=== PATIENT | female | born 1985 | race Caucasian/White ===

== ENCOUNTER 2017-05-05 11:09 | Inpatient (IN) | payer OTHER ==
[~2017-05-05] VITALS: Ht 162.6 cm; Wt 63.6 kg
[~2017-05-05 11:09] MED LIST: ANALPRAM HC 2.5%4 G1 PR; ANAPROX DS550 M1 PO; CHLORASEPTIC M1 EACH MM; IBUPROFEN800 MG PO; Levaquin PO; Motrin PO; NORCO 5/3251 TABLET PO; PREFERA-OB P1 TABLET PO; Percocet 5/325,Endoc PO; SENOKOT S,PE1 TABLET PO
[2017-05-05 12:19] LABS: ADD MIUA? YES; BILIRUBIN NEGATIVE; BLOOD NEGATIVE; COLOR YELLOW ((YELLOW)); GLUCOSE (STRIP) NEGATIVE; KETONES NEGATIVE; LEUKOCYTES MODERATE; NITRITE NEGATIVE; PROTEIN (STRIP) 30; SPECIFIC GRAVITY 1.024 (1.000-1.030); UROBILINOGEN 0.2 MG/DL (0.2-1.0)
[2017-05-05 12:42] LABS: EPITHELIAL CELLS 4+ /HPF; RED BLOOD CELLS NONE SEEN /HPF (0-5)
[2017-05-05 12:43] LABS: BACTERIA 2+ /HPF; CASTS NONE SEEN /LPF; CRYSTALS NONE SEEN; MUCUS 2+ /LPF; UCUL ADDED? YES
[2017-05-05 13:22] LABS: HEMATOCRIT 40.6 % (36.0-46.0); MCH 28.4 PG (29.0-34.0); MCHC 32.3 G/DL (30.0-36.0); MCV 88.1 FL (83-99); MEAN PLAT.VOLUME 10.1 uM^3 (9.5-12.4); PLATELET COUNT 198 K/uL (156-360); RBC DIS.WIDTH-CV 13.8 % (11.8-14.6); RBC DIS.WIDTH-SD 44.6 % (39-53); RED BLOOD COUNT 4.61 M/uL (3.80-5.20); WHITE BLOOD COUNT 12.1 K/uL (4.1-10.2)
[2017-05-05 13:28] LABS: CHLORIDE 106 mEq/L (99-109); SODIUM 136 mEq/L (136-147)
[2017-05-05 13:30] LABS: GLUCOSE 86 mg/dL (70-99)
[2017-05-05 13:31] LABS: ANION GAP 7 MEQ/L (2-14)
[2017-05-05 13:34] LABS: GFR ESTIMATE (CALCULATED) > 59 mL/min/
[2017-05-05 13:35] LABS: UREA NITROGEN (BUN) 10 mg/dL (9-23)
[2017-05-05 13:43] LABS: QUANTITATIVE HCG < 4.0 MIU/ML
[2017-05-05] MEDS ORDERED: ZOLOFT100 MG PO (16:31)
[2017-05-05] MEDS ORDERED: MONONESSA1 EACH PO (16:32)
[2017-05-05 18:01] VITALS: BP 102/57
[2017-05-05 19:27] VITALS: BP 107/56
[2017-05-06] VITALS (8 sets, daily range): BP systolic 103–120; BP diastolic 54–78
[2017-05-06 07:06] LABS: HEMATOCRIT 34.6 % (36.0-46.0); MCH 29.5 PG (29.0-34.0); MCHC 32.4 G/DL (30.0-36.0); MCV 91.1 FL (83-99); PLATELET COUNT 171 K/uL (156-360); RBC DIS.WIDTH-CV 14.3 % (11.8-14.6); RBC DIS.WIDTH-SD 47.8 % (39-53); WHITE BLOOD COUNT 12.2 K/uL (4.1-10.2)
[2017-05-06 07:34] LABS: ANION GAP 5 MEQ/L (2-14); CHLORIDE 109 MEQ/L (99-109); GFR ESTIMATE (CALCULATED) > 59 mL/min/; GLUCOSE 96 mg/dL (70-99); POTASSIUM 4.1 MEQ/L (3.7-5.4); SAMPLE HEMOLYSIS CHECK 0; SAMPLE ICTERIC CHECK 0; SAMPLE LIPEMIA CHECK 0; SODIUM 138 MEQ/L (136-147); UREA NITROGEN (BUN) 10 mg/dL (9-23)
[2017-05-07 03:03] VITALS: BP 113/71
[2017-05-07 06:35] LABS: EOSINOPHIL (%) 1.8 % (0-5); EOSINOPHIL COUNT 0.2 K/uL (0-0.3); HEMATOCRIT 35.3 % (36.0-46.0); IMMATURE GRANULOCYTE (%) 0.3 % (0.0-0.7); INSTRUMENT ABS NEUTROPHIL CT 4.8 K/uL; LYMPHOCYTE COUNT 2.3 K/uL (1.0-2.8); MCH 29.2 PG (29.0-34.0); MCHC 32.6 G/DL (30.0-36.0); MCV 89.6 FL (83-99); MEAN PLAT.VOLUME 10.7 uM^3 (9.5-12.4); MONOCYTE (%) 16.2 % (3-12); MONOCYTE COUNT 1.4 K/uL (0-0.8); NEUTROPHIL (%) 55.3 % (45-76); NEUTROPHIL COUNT 4.8 K/uL (1.8-6.4); PLATELET COUNT 189 K/uL (156-360); RBC DIS.WIDTH-CV 14.2 % (11.8-14.6); RBC DIS.WIDTH-SD 46.4 % (39-53); RED BLOOD COUNT 3.94 M/uL (3.80-5.20); WHITE BLOOD COUNT 8.7 K/uL (4.1-10.2)
[2017-05-07 08:08] VITALS: BP 114/74
[2017-05-07] MEDS ORDERED: IBUPROFEN400 MG PO (11:53)
[2017-05-07] MEDS ORDERED: KEFLEX500 MG PO (11:54)
== END 2017-05-07 13:25 | disposition home or self-care (01) | DRG 690 ==
LOC: EME 11:09 → EDOF 16:00 → 5EAST 16:00
PROVIDERS: Hospitalist
DX: N10 Acute pyelonephritis (principal); F41.9 Anxiety disorder, unspecified; N20.0 Calculus of kidney; N29 Other disorders of kidney and ureter in diseases classified elsewhere; Z72.0 Tobacco use; Z79.899 Other long term (current) drug therapy
CPT/HCPCS: 71010; 74176; 80048; 81003; 83605; 84702; 85025; 85027; 87040; 87086; 99281; 99285; J0696; J1644; J2270; J7030; J7050

== ENCOUNTER 2018-02-12 23:53 | Emergency (ER) | payer OTHER ==
[~2018-02-12] VITALS: Ht 162.6 cm; Wt 72.8 kg
[~2018-02-12 23:53] MED LIST changes: +IBUPROFEN400 MG PO; +KEFLEX500 MG PO; +MONONESSA1 EACH PO; +ZOLOFT100 MG PO
[2018-02-13 00:10] LABS: APPEARANCE SL.HAZY ((CLEAR)); BILIRUBIN NEGATIVE; BLOOD MODERATE; COLOR YELLOW ((YELLOW)); GLUCOSE (STRIP) NEGATIVE; KETONES NEGATIVE; LEUKOCYTES MODERATE; NITRITE NEGATIVE; PROTEIN (STRIP) 30; SPECIFIC GRAVITY 1.019 (1.000-1.030); UROBILINOGEN 0.2 MG/DL (0.2-1.0)
[2018-02-13 00:15] LABS: BACTERIA RARE /HPF; EPITHELIAL CELLS 2+ /HPF; MUCUS TRACE /LPF; RED BLOOD CELLS 15-20 /HPF (0-5); UCUL ADDED? YES; WHITE BLOOD CELLS 15-20 /HPF (0-5)
[2018-02-13 01:32] LABS: HEMATOCRIT 37.8 % (36.0-46.0); HEMOGLOBIN 12.8 G/DL (11.9-15.5); MCH 30.7 PG (29.0-34.0); MCHC 33.9 G/DL (30.0-36.0); MCV 90.6 FL (83-99); PLATELET COUNT 185 K/uL (156-360); RBC DIS.WIDTH-CV 14.1 % (11.8-14.6); RED BLOOD COUNT 4.17 M/uL (3.80-5.20)
[2018-02-13 01:42] LABS: CHLORIDE 105 mEq/L (99-109); SODIUM 139 mEq/L (136-147)
[2018-02-13 01:44] LABS: GLUCOSE 103 mg/dL (70-99)
[2018-02-13 01:48] LABS: CREATININE 0.7 mg/dL (0.6-1.3); GFR ESTIMATE (CALCULATED) > 59 mL/min/
[2018-02-13 01:49] LABS: UREA NITROGEN (BUN) 16 mg/dL (9-23)
[2018-02-13] MEDS ORDERED: NORCO 5/3251 TABLET PO (02:09)
[2018-02-13] MEDS ORDERED: KEFLEX500 MG PO (02:09)
[2018-02-13 03:13] VITALS: BP 112/74
== END 2018-02-13 03:14 | disposition home or self-care (01) ==
LOC: EME 23:53
PROVIDERS: Emergency Medicine
DX: N30.01 Acute cystitis with hematuria (principal); Z87.440 Personal history of urinary (tract) infections
CPT/HCPCS: 80048; 81003; 81025; 85027; 87077; 87086; 87186; 99281; 99284

== ENCOUNTER 2018-04-23 17:15 | Emergency (ER) | payer OTHER ==
[~2018-04-23] VITALS: Ht 162.6 cm; Wt 72.7 kg
[2018-04-23 18:55] LABS: HEMATOCRIT 39.6 % (36.0-46.0); HEMOGLOBIN 13.6 G/DL (11.9-15.5); MCH 30.7 PG (29.0-34.0); MCHC 34.3 G/DL (30.0-36.0); MCV 89.4 FL (83-99); PLATELET COUNT 183 K/uL (156-360); RBC DIS.WIDTH-CV 13.6 % (11.8-14.6); RBC DIS.WIDTH-SD 44.4 % (39-53); RED BLOOD COUNT 4.43 M/uL (3.80-5.20); WHITE BLOOD COUNT 8.8 K/uL (4.1-10.2)
[2018-04-23 19:06] LABS: CHLORIDE 103 mEq/L (99-109); POTASSIUM 3.4 mEq/L (3.7-5.4); SODIUM 136 mEq/L (136-147)
[2018-04-23 19:08] LABS: GLUCOSE 140 mg/dL (70-99)
[2018-04-23 19:12] LABS: CREATININE 0.7 mg/dL (0.6-1.3); GFR ESTIMATE (CALCULATED) > 59 mL/min/
[2018-04-23 19:13] LABS: UREA NITROGEN (BUN) 9 mg/dL (9-23)
[2018-04-23 19:16] LABS: TROP-I INTERPRETATION NEGATIVE; TROPONIN-I < 0.01 ng/mL (0.0-0.30)
[2018-04-23 20:28] VITALS: BP 108/76
[2018-04-23] MEDS ORDERED: PREDNISONE50 MG PO (20:30)
[2018-04-23] MEDS ORDERED: BACTRIM,SEPT1 TABLET PO (20:30)
== END 2018-04-23 20:42 | disposition home or self-care (01) ==
LOC: EME 17:15
PROVIDERS: Emergency Medicine
DX: J20.9 Acute bronchitis, unspecified (principal); R07.89 Other chest pain; T36.8X5A Adverse effect of other systemic antibiotics, initial encounter; Z87.440 Personal history of urinary (tract) infections; Z86.19 Personal history of other infectious and parasitic diseases; Z87.448 Personal history of other diseases of urinary system; Z98.890 Other specified postprocedural states
CPT/HCPCS: 71046; 80048; 84484; 85027; 93005; 99281; 99285; J1200; J2930